=== PATIENT | male | born 1990 | race American Indian/Alaskan Native ===

== ENCOUNTER 2018-07-19 23:26 | Emergency (ER) | payer SELFPAY ==
[2018-07-20 00:18] VITALS: BP 141/91; PULSE 88; RESP 20; TEMP 98; O2SAT 99
--- NOTE | 2018-07-20 01:23 | C.PDOC ---
History Of Present Illness 27 year old male presents to the ER with a complaint of left lower dental pain for the past 2 weeks. Patient was seen by a dentist at the dental clinic 2 weeks ago, given Rx for antibiotics and advised motrin, however, he could not afford the out of pocket cost for the antibiotic and the dentist refused to pull out the tooth. Since then he has been taking a lot of motrin, 2000mg per sitting. Denies fever, chills, or trauma. Time Seen by Provider: 07/20/18 00:43 Chief Complaint (Nursing): Dental Pain History Per: Patient History/Exam Limitations: no limitations Onset/Duration Of Symptoms: Days (2 weeks) Current Symptoms Are (Timing): Still Present Recent travel outside of the [place]: No Past Medical History Reviewed: Historical Data, Nursing Documentation, Vital Signs Vital Signs: Last Vital Signs Temp 98 F 07/20/18 00:14 Pulse 88 07/20/18 00:14 Resp 20 07/20/18 00:14 BP 141/91 H 07/20/18 00:14 Pulse Ox 99 07/20/18 00:14 Family History: States: Unknown Family Hx - Social History Hx Alcohol Use: No Hx Substance Use: No Review Of Systems Constitutional: Negative for: Fever, Chills, Weakness Eyes: Negative for: Redness, Other (Scleral icterus) ENT: Positive for: Mouth Pain. Negative for: Mouth Swelling Cardiovascular: Negative for: Chest Pain Respiratory: Negative for: Cough, Shortness of Breath Gastrointestinal: Negative for: Nausea, Vomiting, Diarrhea Genitourinary: Negative for: Dysuria, Hematuria Musculoskeletal: Negative for: Back Pain Skin: Negative for: Rash Neurological: Negative for: Weakness, Numbness, Dizziness Physical Exam - Physical Exam Appears: Non-toxic Skin: Normal Color, Warm, No Rash Head: Atraumatic, Normacephalic Eye(s): bilateral: Normal Inspection (No scleral icterus), PERRL, EOMI Ear(s): Bilateral: Normal (No drainage) Nose: Normal Oral Mucosa: Moist Teeth: Other (No apparent obvious fracture. Filling to left lower 2nd to last molar) Gingiva: No Swelling Throat: Normal (No swelling or injection), No Exudate, Other (Airway patent) Neck: Normal ROM, Supple Chest: Symmetrical Cardiovascular: Rhythm Regular Respiratory: No Accessory Muscle Use, Other (Normal inspiratory effort) Gastrointestinal/Abdominal: Soft, No Distention Back: Other (Ambulatory with upright steady gait) Extremity: Bilateral: Atraumatic, Normal ROM Neurological/Psych: Oriented x3, Normal Cranial Nerves (Grossly intact) ED Course And Treatment O2 Sat by Pulse Oximetry: 99 (Room air) Pulse Ox Interpretation: Normal Medical Decision Making Medical Decision Making: Tramadol administered. Patient states he recently found out he has a union at work and plans to find dentist through the union. Patient was advised to take less motrin, 800mg per sitting three times a day at most with food. Disposition Counseled Patient/Family Regarding: Diagnosis, Need For Followup, Rx Given - Disposition Disposition: HOME/ ROUTINE Disposition Time: :24 Condition: GOOD Additional Instructions: DELGADO ESTEBAN, thank you for letting us take care of you today. Your provider was Martinez Nichole MD and you were treated for DENTAL PAIN. The emergency medical care you received today was directed at your acute symptoms. If you were prescribed any medication, please fill it and take as directed. It may take several days for your symptoms to resolve. Return to the Emergency Department if your symptoms worsen, do not improve, or if you have any other problems. Please contact your doctor or call one of the physicians/clinics you have been referred to that are listed on the Patient Visit Information form that is included in your discharge packet. Bring any paperwork you were given at discharge with you along with any medications you are taking to your follow up visit. Our treatment cannot replace ongoing medical care by a primary care provider outside of the emergency department. Thank you for allowing the [facility] team to be part of your care today. 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 - Scribe Statement The provider has reviewed the documentation as recorded by the Scribkarine Allen All medical record entries made by the Scribe were at my direction and personally dictated by me. I have reviewed the chart and agree that the record accurately reflects my personal performance of the history, physical exam, medical decision making, and the department course for this patient. I have also personally directed, reviewed, and agree with the discharge instructions and disposition.
== END 2018-07-20 01:29 | disposition home or self-care (01) ==
LOC: C.ER 23:26
DX: K08.89 Other specified disorders of teeth and supporting structures (principal)